=== PATIENT | male | born 1965 | race African-American/Black ===

== ENCOUNTER 2018-11-12 10:04 | Inpatient (IN) | payer MEDICARE, MEDICAID ==
[2018-11-12] MEDS ORDERED: Acetaminophen 325 MG TAB PO PRN (10:11)
[2018-11-12] MEDS ORDERED: Ondansetron ODT 4 MG TAB PO PRN (10:11)
--- NOTE | 2018-11-12 12:47 | PDOC.FPRHP ---
- History of Present Illness Chief Complaint: Ran out of blood pressure medicines and "feeling bad lately" History of Present Illness: The patient is a 53YO AAM w/ a PMH significant for HTN, a CVA and a brain aneurysm who was directly admitted from the family medicine clinic in [place], [place] after being found to be in hypertensive urgency with ECG changes. The patient reports that he ran out his BP medicines about 1 month ago and has been feeling bad ever since. He reports nightly headaches that are pounding in nature across the top of his head that are 6/10 in severity. He says they are exacerbated by laying down and somewhat relieved by sitting up. He also endorses relief with marijuana use. The patient denies any associated chest pain , SOB, vision changes, syncope or pre-syncope, N/V, or focal weakness or deficits other than residual right foot numbness from his previous CVA. He says the headaches are not anywhere near the pain he felt when he had his anuerysm. ED Course: N/A - Allergies/Adverse Reactions Allergies Allergy/AdvReac Type Severity Reaction Status Date / Time No Known Allergies Allergy Verified 11/12/18 14:11 - Home Medications Medication Instructions Recorded Confirmed Type No Known 11/12/18 11/12/18 History - History PMHx: HTN, CVA, h/o aneurysm s/p repair PSHx: h/o aneurysm repair 3-4 years ago FHx: Mother & father- HTN Father- from CVA Social: Current every day smoker. Down to 1/2 ppd but 37 pack year smoking history. Occasionally drinks a beer. Uses marijuana daily but reports no other drug use. - Vital signs BP: 200/119 HR: 56 RR: 20 Tmax: 98F Pox: 98% on RA Wt: 115.711 kg - Physical Exam Constitutional: NAD, awake, alert and oriented, well developed HEENT: normocephalic and atraumatic, PERRLA, EOMI, conjunctiva clear, grossly normal vision, grossly normal hearing, MMM, oropharynx clear Neck: supple, FROM Chest: no-tender to palpation Heart: RRR, normal S1/S2 Lungs: CTAB, no respiratory distress, good air movement, no rales/rhonchi, no wheezing Abdomen: soft, bowel sounds present Musculoskeletal: normal structure, ROM grossly normal Neurological: no focal deficit, CN II-XII intact, normal sensation, other ( proprioception intact) Skin: no rash/lesions, good turgor, capillary refill <2 seconds Heme/Lymphatic: no unusual bruising or bleeding, no purpura Psychiatric: normal mood and affect, good judgment and insight, intact recent and remote memory FMR H&P: Results - Labs Result Diagrams: 11/12/18 12:50 11/12/18 12:50 - EKG Interpretation EKG: Bradycardic at 50 with T wave inversion in aVL. FMR H&P: A/P - Problem List (1) Hypertensive urgency Current Visit: Yes Status: Acute Code(s): I16.0 - HYPERTENSIVE URGENCY (2) WOOD (acute kidney injury) Current Visit: Yes Status: Acute Code(s): N17.9 - ACUTE KIDNEY FAILURE, UNSPECIFIED (3) Elevated CK Current Visit: Yes Status: Acute (4) Elevated CK-MB level Current Visit: Yes Status: Acute Code(s): R74.8 - ABNORMAL LEVELS OF OTHER SERUM ENZYMES (5) Elevated troponin I level Current Visit: Yes Status: Acute Code(s): R74.8 - ABNORMAL LEVELS OF OTHER SERUM ENZYMES (6) Tobacco use Current Visit: Yes Status: Acute Code(s): Z72.0 - TOBACCO USE (7) History of CVA (cerebrovascular accident) Current Visit: Yes Status: Acute Code(s): Z86.73 - PRSNL HX OF TIA (TIA), AND CEREB INFRC W/O RESID DEFICITS (8) Brain aneurysm Current Visit: Yes Status: Resolved - Plan 53YO AAM w/ a PMH significant for HTN, a prior CVA, and brain aneurysm s/p repair who was directly admitted from clinic today after being found to be in hypertensive urgency with a SBP of 210. Hypertensive Urgency: - Will allow permissive hypertension overnight as we do not want to bottom patient out quickly but will start on IV hydralazine PRN for SBP > 180. - Will resume home PO losartan and will also restart home dose of HCTZ in the AM as long as WOOD has resolved. Will hold off resuming a BB as patient has been bradycardic in the 50s since admission. - No signs of end organ damage on exam or labs thus far other than slightly elevated Cr of 1.34. However, FeNa of 0.6% is suggestive of a pre-renal etiology. - Will order PO tylenol PRN for headache. Elevated troponin & CK-MB: - ECG in clinic and in the hospital signifcant for T wave inversions. Inversion noted in lead aVL in hospital. - Initial troponin indeterminately elevated at 0.049. Trended up to 0.059. Will continue to trend. - Initial CK-MB elevated at 7.9 and trending up to 8.5. Will continue to trend. Patient remains asymptomatic. Will order PRN SL nitro & get a repeat ECG should chest pain develop. Elevated CK: - CK elevated at 863 on presentation. - Will start on mIVFs with LR at 160mL/hr. WOOD: - Cr slightly elevated at 1.34 w/ eGFR of 68. - Will start on IVFs w/ LR @ 160mL/hr and recheck a BMP in the AM. h/o CVA: - Aware, patient no in ASA or statin currently. - Not on ASA or statin currently. Will request [facility] records and confirm with patient to see if CVA was ischemic or hemorrhagic. - Will order a FLP with AM labs to calculate ASCVD score but patient likely needs to be on a statin given HTN and smoking history alone. tobacco use: - Aware, current 1/2-1ppd smoker. - Will order a nicotine patch and encourage cessation. Marijuana use: - Patient admitted to daily marijuana use & UDS + on admission. - Will encourage cessation. h/o brain aneurysm: - Aware, s/p repair. FMR H&P: Upper Level - Pertinent history 53 yo male sent to hospital as a direct admit from [facility] for hypertensive urgency. Patient has history of HTN and 36pk year smoking history. Stopped taking losartan, HCTZ, metoprolol about 2 months with mild throbbing CRUZ for the past 2-3 weeks. Denies CP, SOB, N/V, edema. Also endorses daily marijuana use which improves CRUZ. History also significant for aneurysm 3-4 year ago and stroke about 2-3 years ago with right foot and hand pain. Walks with a cane. - Pertinent findings 188/112 HR: 57 98.0 98% on RA RR: 20 GEN: NAD, AAOx3 CARD: RRR, no mgr PULM: CTAB ABD: BSx4, distended, non tender EXT: no cyanosis or edema NEURO: strength 5/5 and symmetric in both LE; no numbness in RLE EKG: sinus maria eugenia, T wave inversions Cr: 1.34 Trop: 0.041 CKMB: 7.9 FeNa: 0.6%, pre-renal - Plan Date/Time: 11/12/18 1247 I, Jose G Montemayor DO, have evaluated this patient and agree with findings/plan as outlined by technology risk intern resident. Pertinent changes/additions are listed here. #HTN urgency -concern for end organ damage with indeterminate troponin and elevated CK as well as EKG changes, will continue to trend with EKGs -will give hydralazine prn -will also give HCTZ starting in the morning -hold off on lowering BP to low or too high as he has a history of aortic aneurysm and stroke #WOOD -LR at maintanence -recheck in the morning -FeNa 0.6% with #marijuana and tobacco abuse -UDS -nicotine patch -counselor at law on cessation
[2018-11-12 13:04] LABS: #Eosinphils 0.2 thou/uL (0.0-0.7); #Lymphocytes 1.8 thou/uL (1.20-3.40); #Monocytes 0.6 thou/uL (0.11-0.59); #Neutrophils 6.3 thou/uL (1.40-6.50); %Basophils 0.4 % (0.0-1.0); %Eosinophils 1.9 % (0.0-10.0); %Lymphocytes 20.2 % (21.0-51.0); %Neutrophils 70.5 % (42.0-75.0); Hemoglobin 15.2 g/dL (14.0-18.0); Mean Corpuscular HGB CONC 31.9 g/dL (32.0-36.0); Mean Corpuscular Hemoglobin 25.2 pg (27.0-31.0); Mean Corpuscular Volume 79.1 fL (78.0-98.0); Mean Platelet Volume 10.3 fL (7.4-10.4); Platelet Count 193 thou/uL (130-400); RBC Distribution Width 13.3 % (11.5-14.5); Red Blood Cell (RBC) Count 6.03 mill/uL (4.70-6.10); White Blood Cell (WBC) Count 8.9 thou/uL (4.8-10.8)
[2018-11-12 13:30] LABS: ALT (SGPT) 19 U/L (8-55); AST (SGOT) 25 U/L (5-34); Albumin 3.9 g/dL (3.5-5.0); Alkaline Phosphatase 81 U/L (40-150); Anion Gap 13 mmol/L (10-20); BUN (Urea Nitrogen) 17 mg/dL (8.4-25.7); Bilirubin, Total 1.1 mg/dL (0.2-1.2); Calc. Creatinine Clearance 0 mL/min (70-130); Calcium 9.5 mg/dL (7.8-10.44); Carbon Dioxide 29 mmol/L (22-29); Chloride 104 mmol/L (98-107); Estimated GFR-MDRD 68; Glucose 87 mg/dL (70-105); Potassium 3.5 mmol/L (3.5-5.1); Protein, Total 6.9 g/dL (6.0-8.3); Sodium 142 mmol/L (136-145)
[2018-11-12 13:56] LABS: CKMB 7.9 ng/mL (0-6.6)
[2018-11-12] MEDS: hydrALAZINE 20 MG/ML VIAL SLOW IVP PRN ×2 (15:00→20:05)
[2018-11-12] MEDS ORDERED: Nicotine 21 MG PATCH TD SCH (15:00)
[2018-11-12 16:54] LABS: Amphetamine Not Detected (NotDetected); Barbiturates Screen Not Detected (NotDetected); Benzodiazepine Screen Not Detected (NotDetected); Cocaine Metabolite Screen Not Detected (NotDetected); Medtox Control Line Valid? VALID (VALID); Medtox Reader # READER 4; Methadone Not Detected (NotDetected); Methamphetamine Not Detected (NotDetected); Opiate Screen Not Detected (NotDetected); Oxycodone Screen Not Detected (NotDetected); Phencyclidine (PCP) Not Detected (NotDetected); THC/Cannabinoid Screen Detected (NotDetected); Tricyclic Screen Not Detected (NotDetected)
[2018-11-12 16:59] LABS: CKMB 8.5 ng/mL (0-6.6)
[2018-11-12 17:01] LABS: Creatinine, Urine 160.88 mg/dL (63-166)
[2018-11-12] MEDS: Lactated Ringer's 1,000 ML IV SCH (17:22)
[2018-11-12] MEDS ORDERED: Nitroglycerin 0.4 MG TAB (25 Tab Bottle) SL PRN (17:45)
[2018-11-12] MEDS ORDERED: Amlodipine 5 MG TAB PO SCH (18:00)
[2018-11-12 20:07] LABS: CKMB 6.4 ng/mL (0-6.6)
[2018-11-12] MEDS ORDERED: Hydrochlorothiazide 25 MG TAB PO SCH (22:45)
[2018-11-13] MEDS: hydrALAZINE 20 MG/ML VIAL SLOW IVP PRN ×3 (00:32→12:04)
[2018-11-13] MEDS: Lactated Ringer's 1,000 ML IV SCH ×2 (00:39→07:39)
[2018-11-13 05:51] LABS: Anion Gap 11 mmol/L (10-20); BUN (Urea Nitrogen) 16 mg/dL (8.4-25.7); Calc. Creatinine Clearance 116 mL/min (70-130); Calcium 9.6 mg/dL (7.8-10.44); Carbon Dioxide 30 mmol/L (22-29); Cardiac Risk 3.4 (Less than 4.5); Chloride 103 mmol/L (98-107); Cholesterol 175 mg/dl (< 200 Desired); Estimated GFR-MDRD 75; Glucose 92 mg/dL (70-105); HDL Cholesterol 52 mg/dL (>60 Neg Risk); LDL Cholesterol, Calculated 107 mg/dL; Sodium 141 mmol/L (136-145); Triglycerides 78 mg/dL (Less than 150)
--- NOTE | 2018-11-13 06:14 | PDOC.FM ---
- Subjective Subjective: Patient required 3 doses of IV hydralazine since admission for SBPs > 180. Patient reports having a headache this AM but states it is a 2/10 in severity. Denies any chest pain or SOB. - Objective MAR Reviewed: Yes Vital Signs & Weight: Vital Signs (12 hours) Temp Pulse Resp BP BP Pulse Ox 11/13/18 05:50 177/89 H 11/13/18 04:00 98.6 F 70 19 205/114 H 97 11/13/18 01:20 75 159/89 H 11/13/18 00:32 72 11/13/18 00:00 97.8 F 72 19 215/120 H 96 11/12/18 20:05 71 212/119 H 11/12/18 20:00 97.9 F 67 19 223/127 H 96 Weight Weight 115.711 kg I&O: 11/11/18 11/12/18 11/13/18 06:59 06:59 06:59 Intake Total 1348 Output Total 650 Balance 698 Result Diagrams: 11/12/18 12:50 11/13/18 04:54 Phys Exam - Physical Examination Constitutional: NAD HEENT: moist MMs Neck: supple, full ROM Respiratory: no wheezing, no rales, no rhonchi, clear to auscultation bilateral Cardiovascular: RRR, no significant murmur Gastrointestinal: no distention, positive bowel sounds Musculoskeletal: no edema Neurological: non-focal, moves all 4 limbs Psychiatric: normal affect, A&O x 3 Skin: no rash, normal turgor Dx/Plan (1) Hypertensive urgency Code(s): I16.0 - HYPERTENSIVE URGENCY Status: Acute (2) WOOD (acute kidney injury) Code(s): N17.9 - ACUTE KIDNEY FAILURE, UNSPECIFIED Status: Acute (3) Elevated CK Status: Acute (4) Elevated CK-MB level Code(s): R74.8 - ABNORMAL LEVELS OF OTHER SERUM ENZYMES Status: Acute (5) Elevated troponin I level Code(s): R74.8 - ABNORMAL LEVELS OF OTHER SERUM ENZYMES Status: Acute (6) Tobacco use Code(s): Z72.0 - TOBACCO USE Status: Acute (7) History of CVA (cerebrovascular accident) Code(s): Z86.73 - PRSNL HX OF TIA (TIA), AND CEREB INFRC W/O RESID DEFICITS Status: Acute (8) Brain aneurysm Status: Resolved - Plan Plan: 53YO AAM w/ a PMH significant for HTN, a prior CVA, and brain aneurysm s/p repair who was directly admitted from clinic today after being found to be in hypertensive urgency with a SBP of 210. Hypertensive Urgency: - Will continue IV hydralazine PRN for SBP > 180. - Will resume home PO losartan and HCTZ today. Will also consider resuming a BB as the patient's HR has increased into the 70's overnight. - Will order PO tylenol PRN for headache. - Will consider initiating a workup for causes of secondary HTN such as hypoaldosteronism by measuring plasma renin activity and plasma aldosterone level due to severity of elevation of BP and the fact that the patient has had headaches even while on his antihypertensive therapy. Hypokalemia: - K of 3.0 this AM. - Will replace with 40mEq PO this AM. - Will continue to monitor with QD labs. Elevated troponin & CK-MB: - Resolved. - ECG in clinic and in the hospital signifcant for T wave inversions. Inversion noted in lead aVL in hospital. - Initial troponin indeterminately elevated at 0.049. Trended up to 0.059 but finally downtrended to 0.051 on third draw. - Initial CK-MB elevated at 7.9 and trending up to 8.5 but finally downtrended on 3rd draw as well. Patient remains asymptomatic. - Will order PRN SL nitro & get a repeat ECG should chest pain develop. Elevated CK: - CK elevated at 863 on presentation. Repeat down to 500 this AM. - Will consider deescalating IVFs today. WOOD: - Cr down to NLs at 1.23 this AM. - Will consider deescalating IVFs as patient is tolerating PO. h/o CVA: - Aware, patient not on ASA or statin currently. - Will request [facility] records and confirm with patient to see if CVA was ischemic or hemorrhagic. - 10-year ASCVD risk score of 25.5%. Will start statin therapy today and consider ASA as well. tobacco use: - Aware, current 1/2-1ppd smoker. - Will order a nicotine patch and encourage cessation. Marijuana use: - Patient admitted to daily marijuana use & UDS + on admission. - Will encourage cessation. h/o brain aneurysm: - Aware, s/p repair. Addendum - Attending - Attending Attestation Date/Time: 11/13/18 5518 I personally evaluated the patient and discussed the management with Dr. Medellin I agree with the History, Examination, Assessment and Plan documented above with any addition or exceptions noted below- Patient denies any complaints except persistent CRUZ. Ambulating without difficulty. Tolerating po. Afebrile. BP 170-190/105/115. A/P: 1) Hypertensive urgency - Retsrated on home medications this morning. Continue prn hydralazine and amlodipine added. Continue to monitor through today. 2) WOOD- improved. 3) Indeterminate troponins - most likely secondary to HTN.
[2018-11-13] MEDS ORDERED: Potassium Chloride 20 MEQ TAB PO SCH (06:30)
[2018-11-13] MEDS ORDERED: Losartan 25 MG TAB PO SCH ×2 (07:45→09:00)
[2018-11-13] MEDS ORDERED: Amlodipine 5 MG TAB PO SCH ×2 (08:00→13:00)
[2018-11-13] MEDS ORDERED: Metoprolol Tartrate 25 MG TAB PO SCH ×3 (09:00→17:00)
[2018-11-13] MEDS ORDERED: Hydrochlorothiazide 25 MG TAB PO SCH (09:00)
[2018-11-13] MEDS: Losartan 25 MG TAB PO SCH (09:14)
[2018-11-13] MEDS: Enoxaparin Sodium 40 MG/0.4 ML SYRINGE SC SCH (09:19)
[2018-11-13] MEDS ORDERED: Acetaminophen 325 MG TAB PO PRN (09:43)
[2018-11-13] MEDS: Ibuprofen 800 MG TAB PO PRN (14:31)
[2018-11-13] MEDS: Metoprolol Tartrate 50 MG TAB PO SCH (21:17)
[2018-11-13] MEDS: Atorvastatin Calcium 40 MG TAB PO SCH (21:18)
[2018-11-14] MEDS: hydrALAZINE 20 MG/ML VIAL SLOW IVP PRN ×2 (04:55→11:43)
--- NOTE | 2018-11-14 06:31 | EKG ---
Test Reason : Blood Pressure : / mmHG Vent. Rate : 060 BPM Atrial Rate : 060 BPM P-R Int : 214 ms QRS Dur : 100 ms QT Int : 454 ms P-R-T Axes : 052 -13 253 degrees QTc Int : 454 ms Sinus rhythm with 1st degree A-V block T wave abnormality, consider lateral ischemia ST-T wave changes inferiorly suggests ischemia. Abnormal ECG When compared with ECG of 10-AUG-2012 15:26, Criteria for Inferior infarct are no longer Present Confirmed by NANCIE DELAROSA ([id number]) on 11/14/2018 6:31:24 AM Referred By: KARIN Confirmed By:NANCIE DELAROSA
--- NOTE | 2018-11-14 06:31 | PDOC.FM ---
- Subjective Subjective: Patient still reaching hypertensive urgency range overnight even with the addition of Norvasc yesterday. Endorses a headache on exam this AM. Otherwise, no complaints. - Objective MAR Reviewed: Yes Vital Signs & Weight: Vital Signs (12 hours) Temp Pulse Resp BP BP Pulse Ox 11/14/18 04:55 65 186/121 H 11/14/18 03:00 98.0 F 63 16 186/121 H 98 11/13/18 23:57 98.1 F 65 16 187/120 H 95 11/13/18 19:00 98.0 F 69 16 190/122 H 95 Weight Weight 115.711 kg I&O: 11/12/18 11/13/18 11/14/18 06:59 06:59 06:59 Intake Total 1348 Output Total 1650 450 Balance -302 -450 Result Diagrams: 11/12/18 12:50 11/14/18 06:46 Phys Exam - Physical Examination Constitutional: NAD HEENT: moist MMs Neck: supple, full ROM Respiratory: no wheezing, no rales, no rhonchi, clear to auscultation bilateral Cardiovascular: RRR, no significant murmur Musculoskeletal: no edema Neurological: non-focal, moves all 4 limbs Psychiatric: normal affect, A&O x 3 Skin: no rash, normal turgor Dx/Plan (1) Hypertensive urgency Code(s): I16.0 - HYPERTENSIVE URGENCY Status: Acute (2) WOOD (acute kidney injury) Code(s): N17.9 - ACUTE KIDNEY FAILURE, UNSPECIFIED Status: Acute (3) Elevated CK Status: Acute (4) Elevated CK-MB level Code(s): R74.8 - ABNORMAL LEVELS OF OTHER SERUM ENZYMES Status: Acute (5) Elevated troponin I level Code(s): R74.8 - ABNORMAL LEVELS OF OTHER SERUM ENZYMES Status: Acute (6) Tobacco use Code(s): Z72.0 - TOBACCO USE Status: Acute (7) History of CVA (cerebrovascular accident) Code(s): Z86.73 - PRSNL HX OF TIA (TIA), AND CEREB INFRC W/O RESID DEFICITS Status: Acute (8) Brain aneurysm Status: Resolved - Plan Plan: 53YO AAM w/ a PMH significant for HTN, a prior CVA, and brain aneurysm s/p repair who was directly admitted from clinic today after being found to be in hypertensive urgency with a SBP of 210. Hypertensive Urgency: - Will continue IV hydralazine PRN for SBP > 180. - Will continue home PO losartan, HCTZ, & metoprolol today but will consider increasing the norvasc to 10mg QD. - Will continue PO tylenol PRN for headache w/ ibuprofen PRN if tylenol does not help. - Will consider initiating a workup for causes of secondary HTN such as hyperaldosteronism by measuring plasma renin activity and plasma aldosterone level due to severity of elevation of BP and the fact that the patient has had headaches even while on his antihypertensive therapy. - Will also consider obtaining a renal doppler U/S to r/o renal artery stenosis as a possible etiology for patient's malignant BP. Hypokalemia: - K low at 3 yesterday AM. - Repeat BMP pending this AM. - Will continue to monitor with QD labs. Elevated CK: - CK elevated at 863 on presentation. Repeat down to 500. - Will continue with PO hydration. WOOD: - Cr down to NLs at 1.23 yesterday. Repeat pending this AM. - Will consider deescalating IVFs as patient is tolerating PO. h/o CVA: - Aware, will continue statin therapy as patient's 10-year ASCVD risk score is > 25%. tobacco use: - Aware, current 1/2-1ppd smoker. - Will encourage cessation. Marijuana use: - Patient admitted to daily marijuana use & UDS + on admission. - Will encourage cessation. h/o brain aneurysm: - Aware, s/p repair. Will treat HTN as described above. Elevated troponin & CK-MB: - Resolved. - ECG in clinic and in the hospital signifcant for T wave inversions. Inversion noted in lead aVL in hospital. - Initial troponin indeterminately elevated at 0.049. Trended up to 0.059 but finally downtrended to 0.051 on third draw. - Initial CK-MB elevated at 7.9 and trending up to 8.5 but finally downtrended on 3rd draw as well. Patient remains asymptomatic. - Will order PRN SL nitro & get a repeat ECG should chest pain develop. Addendum - Attending - Attending Attestation Date/Time: 11/14/18 1018 I personally evaluated the patient and discussed the management with Dr. Medellin I agree with the History, Examination, Assessment and Plan documented above with any addition or exceptions noted below- Patient still with CRUZ otherwise no complaints. Afebrile BP 160-190/110-120s. A/P: 1) Hypertensive urgency - Medications adjusted. Will check renal ultrasound. Consider nephrology consult if still markedly elevated. 2) WOOD- resolved.
[2018-11-14 07:44] LABS: Anion Gap 9 mmol/L (10-20); BUN (Urea Nitrogen) 16 mg/dL (8.4-25.7); Calc. Creatinine Clearance 113 mL/min (70-130); Calcium 9.8 mg/dL (7.8-10.44); Carbon Dioxide 29 mmol/L (22-29); Chloride 104 mmol/L (98-107); Estimated GFR-MDRD 72; Glucose 123 mg/dL (70-105); Potassium 3.2 mmol/L (3.5-5.1); Sodium 139 mmol/L (136-145)
[2018-11-14] MEDS ORDERED: Labetalol HCl 100 MG/20 ML VIAL SLOW IVP PRN (07:45)
[2018-11-14] MEDS: Losartan 25 MG TAB PO SCH (08:05)
[2018-11-14] MEDS: Hydrochlorothiazide 25 MG TAB PO SCH ×2 (08:05→20:19)
[2018-11-14] MEDS: Amlodipine 10 MG TAB PO SCH (08:05)
[2018-11-14] MEDS: Metoprolol Tartrate 50 MG TAB PO SCH ×2 (08:06→20:19)
[2018-11-14] MEDS: Enoxaparin Sodium 40 MG/0.4 ML SYRINGE SC SCH (08:06)
[2018-11-14] MEDS: Potassium Chloride 20 MEQ TAB PO SCH (08:09)
[2018-11-14] MEDS ORDERED: Amlodipine 5 MG TAB PO SCH ×2 (09:00)
[2018-11-14] MEDS ORDERED: Losartan 25 MG TAB PO SCH (09:00)
[2018-11-14] MEDS: Ibuprofen 800 MG TAB PO PRN (11:53)
--- NOTE | 2018-11-14 12:46 | PDOC.EVN ---
Event Note - Event Note Event Note: Patient was changed to inpatient status on 11/14/18 @ ~12:45 after the patient was determined to have failed observation treatment for his HTN. Will continue inpatient workup for causes of secondary HTN and continue to increase his BP regimen PRN.
[2018-11-14] MEDS ORDERED: Metoclopramide HCl 10 MG/2 ML VIAL IVP SCH (16:00)
[2018-11-14] MEDS ORDERED: diphenhydrAMINE 50 MG/ML VIAL IVP SCH (16:00)
--- NOTE | 2018-11-14 17:56 | ULT ---
BILATERAL RENAL ULTRASOUND: HISTORY: Renal failure. FINDINGS: The right kidney measures 11.8 cm in length, and the left kidney measures 10.8 cm in length. No hydr onephrosis or focal mass is seen on either side. No shadowing calculi are noted. The urinary bladde r is not distended due to recent voiding, with a small amount of residual urine. IMPRESSION: No evidence of high-grade obstruction. POS: [facility]
[2018-11-14] MEDS: Atorvastatin Calcium 40 MG TAB PO SCH (20:19)
[2018-11-15] MEDS: Ibuprofen 800 MG TAB PO PRN ×2 (05:02→18:44)
--- NOTE | 2018-11-15 05:23 | PDOC.FM ---
- Subjective Subjective: Patient's BP increased to 188 around 0400 this AM. Otherwise was much better controlled yesterday. Patient states he feels well this AM. Says that his headache is no longer present. Wants to go home today. - Objective MAR Reviewed: Yes Vital Signs & Weight: Vital Signs (12 hours) Temp Pulse Resp BP BP BP Pulse Ox 11/15/18 05:07 179/105 H 11/15/18 03:57 98.4 F 73 16 188/112 H 98 11/15/18 00:00 98.2 F 66 16 158/86 H 98 11/14/18 20:03 98.0 F 72 16 155/96 H 96 Weight Weight 109.951 kg I&O: 11/13/18 11/14/18 11/15/18 06:59 06:59 06:59 Intake Total 1348 50 Output Total 1650 450 Balance -302 -450 50 Result Diagrams: 11/12/18 12:50 11/15/18 04:56 Phys Exam - Physical Examination Constitutional: NAD HEENT: moist MMs Neck: supple, full ROM Respiratory: no wheezing, no rales, no rhonchi, clear to auscultation bilateral Cardiovascular: RRR, no significant murmur Gastrointestinal: positive bowel sounds Musculoskeletal: no edema Neurological: non-focal, moves all 4 limbs Psychiatric: normal affect, A&O x 3 Skin: no rash, normal turgor, cap refill <2 seconds Dx/Plan (1) Hypertensive urgency Code(s): I16.0 - HYPERTENSIVE URGENCY Status: Acute (2) WOOD (acute kidney injury) Code(s): N17.9 - ACUTE KIDNEY FAILURE, UNSPECIFIED Status: Acute (3) Elevated CK Status: Acute (4) Elevated CK-MB level Code(s): R74.8 - ABNORMAL LEVELS OF OTHER SERUM ENZYMES Status: Acute (5) Elevated troponin I level Code(s): R74.8 - ABNORMAL LEVELS OF OTHER SERUM ENZYMES Status: Acute (6) Tobacco use Code(s): Z72.0 - TOBACCO USE Status: Acute (7) History of CVA (cerebrovascular accident) Code(s): Z86.73 - PRSNL HX OF TIA (TIA), AND CEREB INFRC W/O RESID DEFICITS Status: Acute (8) Brain aneurysm Status: Resolved - Plan Plan: 53YO AAM w/ a PMH significant for HTN, a prior CVA, and brain aneurysm s/p repair who was directly admitted from clinic today after being found to be in hypertensive urgency with a SBP of 210. Hypertensive Urgency: - Will continue IV hydralazine & labetalol PRN for SBP > 180. - Will continue home PO losartan, HCTZ BID, metoprolol, & norvasc 10 today as BPs were much better controlled yesterday. - Will continue PO tylenol PRN for headache w/ ibuprofen PRN if tylenol does not help. - Will consider initiating a workup for causes of secondary HTN such as hyperaldosteronism by measuring plasma renin activity and plasma aldosterone level due to severity of elevation of BP and the fact that the patient has had headaches even while on his antihypertensive therapy. - Will renal U/S did not show any evidence of hydro but did not comment on arteries. Will need one with dopplers to evaluate renal arteries. Hypokalemia: - K low at 3.3 today. - Will replace with 40mEq PO today. - Will continue to monitor with QD labs. Elevated CK: - CK elevated at 863 on presentation. Repeat down to 500. - Will continue with PO hydration. WOOD: - Cr slightly up at 1.39 this AM. Will consider administering a small bolus of fluids as likely prerenal in etiology as it was on admission. Likely related to BP actually being better controlled yesterday. - Will continue to monitor with QD labs. h/o CVA: - Aware, will continue statin therapy as patient's 10-year ASCVD risk score is > 25%. tobacco use: - Aware, current 1/2-1ppd smoker. - Will encourage cessation. Marijuana use: - Patient admitted to daily marijuana use & UDS + on admission. - Will encourage cessation. h/o brain aneurysm: - Aware, s/p repair. Will treat HTN as described above. Elevated troponin & CK-MB: - Resolved. - ECG in clinic and in the hospital signifcant for T wave inversions. Inversion noted in lead aVL in hospital. - Initial troponin indeterminately elevated at 0.049. Trended up to 0.059 but finally downtrended to 0.051 on third draw. - Initial CK-MB elevated at 7.9 and trending up to 8.5 but finally downtrended on 3rd draw as well. Patient remains asymptomatic. - Will continue PRN SL nitro & get a repeat ECG should chest pain develop. Addendum - Attending - Attending Attestation Date/Time: 11/15/18 1037 I personally evaluated the patient and discussed the management with Dr. Medellin I agree with the History, Examination, Assessment and Plan documented above with any addition or exceptions noted below- Patient without complaints. Afebrile BP 140-190/75-120. A/P: 1) Hypertensive urgency- BP marginally improved ; continue current medications; Awaiting renal artery USG. Will check U/A for proteinuria. May need to add minoxidil. 2) H/o CVA- continue statin
[2018-11-15 05:27] LABS: Anion Gap 12 mmol/L (10-20); BUN (Urea Nitrogen) 18 mg/dL (8.4-25.7); Calc. Creatinine Clearance 98 mL/min (70-130); Calcium 9.9 mg/dL (7.8-10.44); Carbon Dioxide 28 mmol/L (22-29); Chloride 104 mmol/L (98-107); Estimated GFR-MDRD 65; Glucose 105 mg/dL (70-105); Magnesium 2.3 mg/dL (1.6-2.6); Potassium 3.3 mmol/L (3.5-5.1); Sodium 141 mmol/L (136-145)
[2018-11-15] MEDS: Losartan 25 MG TAB PO SCH (08:19)
[2018-11-15] MEDS: Enoxaparin Sodium 40 MG/0.4 ML SYRINGE SC SCH ×2 (08:20→08:24)
[2018-11-15] MEDS: Amlodipine 10 MG TAB PO SCH (08:20)
[2018-11-15] MEDS: Potassium Chloride 20 MEQ TAB PO SCH (08:20)
[2018-11-15] MEDS: Hydrochlorothiazide 25 MG TAB PO SCH ×2 (08:20→21:20)
[2018-11-15] MEDS: Metoprolol Tartrate 50 MG TAB PO SCH ×2 (08:20→21:20)
--- NOTE | 2018-11-15 12:10 | ULT ---
BILATERAL RENAL ARTERIAL DOPPLER ULTRASOUND: Date: 11/15/18 HISTORY: Hypertension. FINDINGS: The peak systolic velocity in the right renal artery measures 105 cm/second and in the left renal art rudi measures 67 cm/second. The renal artery to aortic ratio is measured at 1.72 on the right and 1.08 on the left. The resistive indices measure 0.56 on the right and 0.66 on the left. IMPRESSION: No evidence of hemodynamically significant renal artery stenosis. POS: [place]
[2018-11-15 14:11] LABS: Bilirubin Negative (Negative); Blood, Urine Negative (Negative); Clarity CLEAR (Clear); Glucose, Urine (Dipstick) Negative (Negative); Leukocyte Small (Negative); Nitrite Negative (Negative); Protein, Urine (Dipstick) Negative (Neg-Trace); Specific Gravity, Urine 1.016 (1.002-1.036)
[2018-11-15 14:14] LABS: Bacteria/HPF None Seen HPF (None Seen); Hyaline Casts/LPF 0-3 HYALINE CAST LPF (0-3 Hyaline); Pathc Cast-AUWi Flag 0.29 (0-2.49); Squamous Epithelial 0-3 HPF (0-3)
[2018-11-15] MEDS: hydrALAZINE 20 MG/ML VIAL SLOW IVP PRN (15:40)
[2018-11-15] MEDS: Atorvastatin Calcium 40 MG TAB PO SCH (21:20)
--- NOTE | 2018-11-16 06:07 | PDOC.FM ---
- Subjective Subjective: NAEO. Patient says he feels well this AM. Denies any persistent headache. Denies having had any chest pain or SOB since admission. Would like to go home. - Objective MAR Reviewed: Yes Vital Signs & Weight: Vital Signs (12 hours) Temp Pulse Resp BP Pulse Ox 11/16/18 03:40 98.5 F 68 16 172/95 H 96 11/16/18 00:00 98.7 F 65 16 135/91 H 98 11/15/18 20:40 97 11/15/18 19:56 98.6 F 87 18 131/76 97 Weight Weight 110.767 kg I&O: 11/14/18 11/15/18 11/16/18 06:59 06:59 06:59 Intake Total 460 920 Output Total 450 Balance -450 460 920 Result Diagrams: 11/12/18 12:50 11/16/18 06:05 Phys Exam - Physical Examination Constitutional: NAD HEENT: moist MMs Neck: supple, full ROM Respiratory: no wheezing, no rales, no rhonchi, clear to auscultation bilateral Cardiovascular: RRR, no significant murmur Gastrointestinal: positive bowel sounds Musculoskeletal: no edema, pulses present Neurological: non-focal, moves all 4 limbs Psychiatric: normal affect, A&O x 3 Skin: no rash, normal turgor, cap refill <2 seconds Dx/Plan (1) Hypertensive urgency Code(s): I16.0 - HYPERTENSIVE URGENCY Status: Acute (2) WOOD (acute kidney injury) Code(s): N17.9 - ACUTE KIDNEY FAILURE, UNSPECIFIED Status: Acute (3) Elevated CK Status: Acute (4) Elevated CK-MB level Code(s): R74.8 - ABNORMAL LEVELS OF OTHER SERUM ENZYMES Status: Acute (5) Elevated troponin I level Code(s): R74.8 - ABNORMAL LEVELS OF OTHER SERUM ENZYMES Status: Acute (6) Tobacco use Code(s): Z72.0 - TOBACCO USE Status: Acute (7) History of CVA (cerebrovascular accident) Code(s): Z86.73 - PRSNL HX OF TIA (TIA), AND CEREB INFRC W/O RESID DEFICITS Status: Acute (8) Brain aneurysm Status: Resolved - Plan Plan: 53YO AAM w/ a PMH significant for HTN, a prior CVA, and brain aneurysm s/p repair who was directly admitted from clinic today after being found to be in hypertensive urgency with a SBP of 210. Hypertensive Urgency: - Improving, no SBP > 180 since ~12:00 yesterday. - Will continue home PO losartan, HCTZ BID, metoprolol BID but now give norvasc 10 QPM instead of QAM to prevent BP spikes in the early AM. - Will continue PO tylenol PRN for headache w/ ibuprofen PRN if tylenol does not help. - Will still consider initiating a workup for causes of secondary HTN as an outpatient as it has taken several days and now 4 agents to get BP just below urgency range consistently. - Will renal U/S did not show any significant renal artery stenosis and UA was negative for proteinuria. - Will watch closely over the course of the afternoon and possibly d/c later today if BP is still below urgency level but will need to make sure patient has prescriptions first. Hypokalemia: - K low at 3.3 yesterday. - Repeat pending today. Will replace PRN. - Will continue to monitor with QD labs. WOOD: - Cr slightly up at 1.39 yesterday. Likely related to BP actually being better controlled. - Will continue to monitor with QD labs. h/o CVA: - Aware, will continue statin therapy as patient's 10-year ASCVD risk score is > 25%. tobacco use: - Aware, current 1/2-1ppd smoker. - Will encourage cessation. Marijuana use: - Patient admitted to daily marijuana use & UDS + on admission. - Will encourage cessation. h/o brain aneurysm: - Aware, s/p repair. Will treat HTN as described above. Elevated CK: - CK elevated at 863 on presentation. Repeat down to 500. - Will continue with PO hydration. Elevated troponin & CK-MB: - Resolved. - ECG in clinic and in the hospital significant for T wave inversions. Inversion noted in lead aVL in hospital. - Initial troponin indeterminately elevated at 0.049. Trended up to 0.059 but finally downtrended to 0.051 on third draw. - Initial CK-MB elevated at 7.9 and trending up to 8.5 but finally downtrended on 3rd draw as well. Patient remains asymptomatic. - Will continue PRN SL nitro & get a repeat ECG should chest pain develop. Dispo: Will watch through noon today and if patient's BP remains below urgency level will likely d/c home with instructions for close follow-up at our clinic. Addendum - Attending - Attending Attestation Date/Time: 11/16/18 1320 I personally evaluated the patient and discussed the management with Dr. Medellin I agree with the History, Examination, Assessment and Plan documented above with any addition or exceptions noted below- Patient without complaint. States that he feels better. Afebrile BP 130-170/90s. A/P: 1) HTN urgency- improved; continue current meds. Renal USG and dopplers negative. Will also check plasma renin and aldosterone in AM 2) V-tach- had 9 beats of V-tach overnight; asymptomatic. Will consult cardiology. Will obtain echo.
[2018-11-16 07:16] LABS: Anion Gap 13 mmol/L (10-20); BUN (Urea Nitrogen) 20 mg/dL (8.4-25.7); Calc. Creatinine Clearance 99 mL/min (70-130); Calcium 9.9 mg/dL (7.8-10.44); Carbon Dioxide 25 mmol/L (22-29); Chloride 103 mmol/L (98-107); Estimated GFR-MDRD 66; Glucose 97 mg/dL (70-105); Potassium 3.2 mmol/L (3.5-5.1); Sodium 138 mmol/L (136-145)
[2018-11-16] MEDS: Enoxaparin Sodium 40 MG/0.4 ML SYRINGE SC SCH (08:16)
[2018-11-16] MEDS: Losartan 25 MG TAB PO SCH (08:16)
[2018-11-16] MEDS: Metoprolol Tartrate 50 MG TAB PO SCH ×2 (08:16→20:58)
[2018-11-16] MEDS: Hydrochlorothiazide 25 MG TAB PO SCH ×2 (08:16→20:58)
[2018-11-16] MEDS: Potassium Chloride 20 MEQ TAB PO SCH (08:16)
[2018-11-16] MEDS: Atorvastatin Calcium 40 MG TAB PO SCH (20:58)
[2018-11-16] MEDS ORDERED: Amlodipine 10 MG TAB PO SCH (21:00)
[2018-11-16] MEDS ORDERED: NIFEdipine XL 60 MG TAB PO SCH (21:00)
[2018-11-17 06:08] LABS: Anion Gap 12 mmol/L (10-20); BUN (Urea Nitrogen) 24 mg/dL (8.4-25.7); Calc. Creatinine Clearance 94 mL/min (70-130); Carbon Dioxide 25 mmol/L (22-29); Chloride 105 mmol/L (98-107); Estimated GFR-MDRD 62; Glucose 109 mg/dL (70-105); Potassium 3.3 mmol/L (3.5-5.1); Sodium 139 mmol/L (136-145)
--- NOTE | 2018-11-17 06:50 | PDOC.FM ---
- Subjective Subjective: NAEO. Patient states he feels well this AM. Denies any chest pain, SOB, or palpitations. Wants to go home. - Objective MAR Reviewed: Yes Vital Signs & Weight: Vital Signs (12 hours) Temp Pulse Resp BP BP BP Pulse Ox 11/17/18 04:00 98.6 F 64 19 145/95 H 96 11/17/18 00:00 98.4 F 62 19 153/101 H 95 11/16/18 20:58 70 166/11 H 166/111 H 11/16/18 20:15 97 11/16/18 20:00 98.4 F 70 19 166/111 H 97 Weight Weight 110.767 kg I&O: 11/15/18 11/16/18 11/17/18 06:59 06:59 06:59 Intake Total 460 920 550 Balance 460 920 550 Result Diagrams: 11/12/18 12:50 11/17/18 05:35 Phys Exam - Physical Examination Constitutional: NAD HEENT: moist MMs Neck: supple, full ROM Respiratory: no wheezing, no rales, no rhonchi, clear to auscultation bilateral Cardiovascular: RRR, no significant murmur Gastrointestinal: positive bowel sounds Musculoskeletal: no edema, pulses present Neurological: non-focal, moves all 4 limbs Psychiatric: normal affect, A&O x 3 Skin: no rash, normal turgor Dx/Plan (1) Hypertensive urgency Code(s): I16.0 - HYPERTENSIVE URGENCY Status: Acute (2) WOOD (acute kidney injury) Code(s): N17.9 - ACUTE KIDNEY FAILURE, UNSPECIFIED Status: Acute (3) Elevated CK Status: Acute (4) Elevated CK-MB level Code(s): R74.8 - ABNORMAL LEVELS OF OTHER SERUM ENZYMES Status: Acute (5) Elevated troponin I level Code(s): R74.8 - ABNORMAL LEVELS OF OTHER SERUM ENZYMES Status: Acute (6) Tobacco use Code(s): Z72.0 - TOBACCO USE Status: Acute (7) History of CVA (cerebrovascular accident) Code(s): Z86.73 - PRSNL HX OF TIA (TIA), AND CEREB INFRC W/O RESID DEFICITS Status: Acute (8) Brain aneurysm Status: Resolved - Plan Plan: 53YO AAM w/ a PMH significant for HTN, a prior CVA, and brain aneurysm s/p repair who was directly admitted from clinic today after being found to be in hypertensive urgency with a SBP of 210. Hypertensive Urgency: - Improving, no SBP > 180 since ~15:00 on 11/15. - Will continue home PO losartan, HCTZ BID, & norvasc 10mg QHS. Will start on nifedipine rather than continuing metoprolol for now per cards recs. - Will continue PO tylenol PRN for headache w/ ibuprofen PRN if tylenol does not help. - Will renal U/S did not show any significant renal artery stenosis and UA was negative for proteinuria. - Urine and plasma free metanephrines as well as plasma renin activity and aldosterone levels pending to r/o other secondary causes of HTN. - Will watch closely over the course of the afternoon and plan to d/c once cards has signed off. Non-sustained V-tach: - Patient had a run of non-sustained V-tach on 11/06 @ ~0230. - Echo pending. - Cardiology, Dr. Fletcher, consulted and is on the case. Plan for stress test this AM. Will await further recs. Hypokalemia: - K 3.3 today. - Will continue with QD 40mEq PO and consider an additional one time dose of 20mEq QHS if patient stays overnight. - Will continue to monitor with QD labs. WOOD: - Cr slightly up at 1.46 today. Likely related to BP actually being better controlled. Will consider giving a 1/2 bolus while patient is NPO. - Will continue to monitor with QD labs. h/o CVA: - Aware, will continue statin therapy as patient's 10-year ASCVD risk score is > 25%. tobacco use: - Aware, current 1/2-1ppd smoker. - Will encourage cessation. Marijuana use: - Patient admitted to daily marijuana use & UDS + on admission. - Will encourage cessation. h/o brain aneurysm: - Aware, s/p repair. Will treat HTN as described above. Elevated CK: - CK elevated at 863 on presentation. Repeat down to 500. - Will continue with PO hydration. Elevated troponin & CK-MB: - Resolved. - ECG in clinic and in the hospital significant for T wave inversions. Inversion noted in lead aVL in hospital. - Initial troponin indeterminately elevated at 0.049. Trended up to 0.059 but finally downtrended to 0.051 on third draw. - Initial CK-MB elevated at 7.9 and trending up to 8.5 but finally downtrended on 3rd draw as well. Patient remains asymptomatic. - Will continue PRN SL nitro & get a repeat ECG should chest pain develop. Dispo: Will plan to d/c home possibly later today with close follow-up later today pending cards recs and a normal stress test today. Addendum - Attending - Attending Attestation Date/Time: 11/17/18 0992 I personally evaluated the patient and discussed the management with Dr. Medellin I agree with the History, Examination, Assessment and Plan documented above with any addition or exceptions noted below- Patient without complaints. Afebrile VSS. A/P: 1) Hypertension - BP improved; appreciate cardiology assistance. Continue current meds. 2) V-tach- no further episodes. Stress test today as per cardiology.
[2018-11-17] MEDS ORDERED: Lactated Ringer's 1,000 ML IV SCH ×2 (07:30)
[2018-11-17] MEDS: Losartan 25 MG TAB PO SCH (09:50)
[2018-11-17] MEDS: Potassium Chloride 20 MEQ TAB PO SCH (09:51)
[2018-11-17] MEDS: Hydrochlorothiazide 25 MG TAB PO SCH (09:51)
[2018-11-17] MEDS: Enoxaparin Sodium 40 MG/0.4 ML SYRINGE SC SCH (10:03)
--- NOTE | 2018-11-17 11:13 | NM ---
NUCLEAR MEDICINE CARDIAC SPECT WITH EF AND WALL MOTION: HISTORY: A 53-year-old male with a history of 9 beats of ventricular tachycardia, a history of stroke, hyperte nsion, and a smoking history. TECHNIQUE: Exam performed using Antwon protocol. Stress images were performed following 33 millicuries technetium 99m sestamibi intravenously. Restin g images were performed following 11 millicuries technetium 99m sestamibi intravenously. FINDINGS: Multiple SPECT images in the short axis, vertical long axis, and horizontal long axis demonstrate no scan evidence for infarct or ischemia. TID: 0.94 LHR: 0.40 EDV: Elevated at 207 mL. EF: 40% MYOCARDIAL PERFUSION WALL MOTION: No focal wall motion abnormality. IMPRESSION: 1. No scan evidence for infarct or ischemia. 2. Elevated end-diastolic velocity at 207 mL with a 40% ejection fraction. POS: [place]
[2018-11-17 11:55] VITALS: BP 161/107; TEMP 98.3
--- NOTE | 2018-11-17 21:28 | CON ---
DATE OF CONSULT: 11/16/18 Patient is a 53-year-old gentleman with a history of hypertension who presented with a markedly elevated blood pressure. The patient has a history of cerebrovascular accident. He has been found to have a brain aneurysm. He underwent resection of the aneurysm. The patient has a history of difficult to control hypertension. The patient states he is usually compliant with his medications. He had been out of his blood pressure medications and he noticed feeling weak. He denied having any chest discomfort. The patient denies having any history of dyspnea, PND or orthopnea. PAST MEDICAL HISTORY: 1. Hypertension. 2. Brain aneurysm. 3. Chronic renal insufficiency. PAST SURGICAL HISTORY: Brain aneurysm resection SOCIAL HISTORY: He smokes one pack per day and uses marijuana. FAMILY HISTORY: No strong family history of heart disease. ALLERGIES: No known drug allergies. MEDICATIONS: Potassium 20 q. day, Metoprolol 50 b.i.d., Losartan 100 daily, HCTZ 25 b.i.d. Lipitor 40 q. h.s., Norvasc 10 q. day. REVIEW OF SYSTEMS: Ten point system otherwise unremarkable. PHYSICAL EXAMINATION: GENERAL: This is an obese gentleman in no acute distress with a blood pressure of 165/97. NECK: Showed no jugular venous distention. LUNGS: Clear to auscultation. HEART: Regular rate and rhythm. Normal S1 and S2. ABDOMEN: Distended. EXTREMITIES: Show trace edema. VASCULAR: Radial pulses are 2+. LABORATORY RESULTS: Sodium 138, potassium 3.2, chloride 103, bicarbonate 25, BUN 20, creatinine 1.38 , glucose 97. EKG revealed normal sinus rhythm with T-wave abnormality suggestive of lateral ischemia. Telemetry monitoring revealed short run of nonsustained ventricular tachycardia. IMPRESSION: 1. Hypertensive crisis. 2. Nonsustained ventricular tachycardia. 3. History of CVA. 4. History of brain aneurysm. 5. Tobacco abuse 6. Renal insufficiency. This gentleman presents with malignant hypertension. He had a short run of nonsustained ventricular tachycardia. The patient will undergo an echocardiogram to evaluate his left ventricular function. Would also a recommend stress study to make sure there is no evidence of significant ischemia. The patient is highly advised to discontinue smoking. Would recommend switching the patient from Amlodipine to Nifedipine for better blood pressure control. We will follow this patient with you through his hospitalization. GUTHRIE CORTLAND MEDICAL CENTERAnnmarie
--- NOTE | 2018-11-18 12:03 | DIS ---
DATE OF ADMISSION: 11/14/2018 DATE OF DISCHARGE: 11/17/2018 RESIDENT: Jillian Medellin MD ADMITTING ATTENDING: Vidal Stock MD DISCHARGE ATTENDING: Beverly Schwartz MD CONSULT: Cardiology, Dr. Jl Fletcher. PROCEDURES: 1. Renal ultrasound on 11/14/2018, showed no evidence of high-grade obstruction. 2. Abdomen and pelvis ultrasound on 11/15/2018, which showed no evidence of hemodynamically significant renal artery stenosis. 3. Nuclear stress test, which showed no evidence of infarct or ischemia, but an elevated end-diastolic velocity of 207 mL with a 40% ejection fraction. 4. Echocardiogram, which showed an ejection fraction estimated at 50% to 55% with severe concentric left ventricular hypertrophy and impaired relaxation compatible with diastolic dysfunction. PRIMARY DIAGNOSES: 1. Hypertensive urgency. 2. Elevated troponin level. 3. Elevated CK-MB level. 4. Elevated CK. 5. Acute kidney injury. 6. Heart failure with preserved ejection fraction. SECONDARY DIAGNOSES: 1. Hypertension. 2. History of hemorrhagic cerebrovascular accident. 3. History of ruptured brain aneurysm. 4. Tobacco use. DISCHARGE MEDICATIONS: DICTATION ENDS HERE Job ID: [id number]
== END 2018-11-17 15:53 | disposition home or self-care (01) | DRG 305 ==
LOC: 2SE 12:18 → INTOOBSV 12:18 → OBSVTOIN 11-14 12:44
PROVIDERS: ADMIT Family Medicine; ATTEND Family Medicine
DX: I16.0 Hypertensive urgency (principal); N17.9 Acute kidney failure, unspecified; I47.2 Ventricular tachycardia; F17.210 Nicotine dependence, cigarettes, uncomplicated; I12.9 Hypertensive chronic kidney disease with stage 1 through stage 4 chronic kidney disease, or unspecified chronic kidney disease; F12.10 Cannabis abuse, uncomplicated; R74.8 Abnormal levels of other serum enzymes; N18.9 Chronic kidney disease, unspecified; E87.6 Hypokalemia; Z98.890 Other specified postprocedural states; Z86.79 Personal history of other diseases of the circulatory system; Z71.6 Tobacco abuse counseling; Z79.899 Other long term (current) drug therapy; Z86.73 Personal history of transient ischemic attack (TIA), and cerebral infarction without residual deficits
CPT/HCPCS: 36415; 76700; 76770; 78452; 80048; 80053; 80061; 80306; 81003; 81015; 82088; 82550; 82553; 82570; 83735; 83835; 84244; 84300; 84484; 85025; 93005; 93010; 93017; 93306; A9500; J0360; J1200; J1650; J2765

== ENCOUNTER 2019-03-14 02:06 | Inpatient (IN) | payer MEDICARE, MEDICAID ==
[2019-03-14] MEDS ORDERED: Labetalol HCl 100 MG/20 ML VIAL ONE (02:29)
[2019-03-14 03:12] LABS: Amphetamine Not Detected (NotDetected); Barbiturates Screen Not Detected (NotDetected); Benzodiazepine Screen Not Detected (NotDetected); Cocaine Metabolite Screen Not Detected (NotDetected); Medtox Control Line Valid? VALID (VALID); Medtox Reader # READER 4; Methadone Not Detected (NotDetected); Methamphetamine Not Detected (NotDetected); Opiate Screen Not Detected (NotDetected); Oxycodone Screen Not Detected (NotDetected); Phencyclidine (PCP) Not Detected (NotDetected); THC/Cannabinoid Screen Detected (NotDetected); Tricyclic Screen Not Detected (NotDetected)
[2019-03-14 03:49] LABS: CKMB 3.9 ng/mL (0-6.6)
--- NOTE | 2019-03-14 04:28 | PDOC.FPRHP ---
- History of Present Illness Chief Complaint: headache History of Present Illness: 53yo m with pmh of HTN and non compliance as well as ruptured brain anneurysm 3 years ago s/p craniectomy presents for CRUZ and nosebleed x1 day. pt reports these were the symptoms during his previous CVA and had CT brain done at outside ER which was unremarkable. Pt was otherwise a poor historian and unable to give any history. After transfer to [employer] he was asymptomatic only complaining of fatigue due to the late hour. ED Course: labetalol 20mg, --> cardene drip - Allergies/Adverse Reactions Allergies Allergy/AdvReac Type Severity Reaction Status Date / Time No Known Allergies Allergy Verified 03/14/19 05:01 - Home Medications Medication Instructions Recorded Confirmed Type Atorvastatin Calcium [Lipitor] 40 mg PO HS #30 tab 11/15/18 03/14/19 Rx Ibuprofen [Motrin] 800 mg PO Q6H PRN tab 11/15/18 03/14/19 Rx Losartan [Cozaar] 100 mg PO DAILY #120 tab 11/15/18 03/14/19 Rx Metoprolol Tartrate [Lopressor] 50 mg PO BID #60 tab 11/15/18 03/14/19 Rx Potassium Chloride [K-Dur] 20 meq PO DAILY #14 tab 11/15/18 03/14/19 Rx Hydrochlorothiazide 12.5 mg PO BID #60 tab 11/17/18 03/14/19 Rx NIFEdipine [Procardia XL] 60 mg PO HS #30 tab 11/17/18 03/14/19 Rx cloNIDine [Catapres] 0.1 mg PO BID 03/14/19 03/14/19 History - History PMHx: hx of ruptured brain aneurysm s/p repair, HTN PSHx: repair of brain aneurysm FHx: none Social: smoke 1 pack per day since he was 15 ~38 pack year hx, smokes marijuana , 2 beers per day - Review of Systems General: reports: fatigue. denies: fever/chills, weight/appetite/sleep changes Eyes: denies: eye pain, vision changes ENT: denies: nasal congestion, rhinorrhea Respiratory: denies: congestion, shortness of breath Cardiovascular: denies: chest pain, palpitation, edema Gastrointestinal: denies: nausea, vomiting Genitourinary: denies: dysuria, polyuria Skin: denies: rashes, lesions Musculoskeletal: denies: pain, tenderness Neurological: denies: numbness, syncope Psychological: denies: anxiety, depression - Vital signs BP: [203/126] HR: [72] RR: [18] Tmax: [98.1] Pox: [97]% on [RA] Wt: [115 KG] - Physical Exam Constitutional: NAD, awake, alert and oriented HEENT: PERRLA, EOMI, grossly normal vision, grossly normal hearing Neck: supple, trachea midline Chest: no-tender to palpation Heart: RRR, normal S1/S2 Lungs: CTAB, no respiratory distress Abdomen: soft, non-tender Musculoskeletal: normal structure, normal tone Neurological: no focal deficit, normal sensation Skin: no rash/lesions, good turgor Heme/Lymphatic: no unusual bruising or bleeding, no purpura Psychiatric: normal mood and affect, good judgment and insight FMR H&P: Results - Labs Lab results: CK-MB (CK-2) 3.9 ng/mL (0-6.6) 03/14/19 02:58 FMR H&P: A/P - Problem List (1) Hypertensive emergency Current Visit: Yes Status: Acute Code(s): I16.1 - HYPERTENSIVE EMERGENCY - Plan Hypertensive emergency A- pt did not respond to Labetalol, is now on cardene drip P- admit to CCU -continue cardene drip -plan to switch to PO meds as BP improves Hx of brain anuerysm A- pt is no longer sympomtatic and CT brain was normal, cannot get CTA for 24hrs 2/2 WOOD P- plan for CTA head once 24hrs has passed HFrEF A- had echo done in 10/2018 with EF 50-55%, was sent home on ARB and BB but pt non compliant, not in acute exacerbation P- plan to restart previous discharge meds as bp normalizes WOOD A- likely 2/2 HTN P- controll htn DISPO: FULL FMR H&P: Upper Level - Pertinent history 53 yr old male with PMH of ruptured brain aneurysm presents to outside ER for bloody nose. This was of concern to him bc it is apparently how his last brain aneurysm presented. He is a rather poor historian, is unable to recall his PCP' s name. He notes having surgery for his aneurysm in [place] several years ago. He reports use of clonidine for BP - Pertinent findings Gen: No acute distress, alert and oriented, overall poor historian Heart: RRR, no M/R/G Lungs: CTAB, no Wheezes, rhales, rhonchi Abd: protuberant, soft, nontender Ext: No edema in BLE Neuro: no focal neurologic deficits Brain CT: deep white matter ischemic changes, vertebrobasilar dilichoectasia - Plan Date/Time: 03/14/19 0427 I, [Khushbu Bowles], have evaluated this patient and agree with findings/plan as outlined by advertising intern resident. Pertinent changes/additions are listed here. 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 In which case treatment with spironolactone would be helpful. At that time he did also present hypokalemic. He has normal potassium today. WOOD on CKD -IV fluids and recheck BMP in AM -baseline CK appears to be around 1.2-1.4 medication noncompliance -does not seem to be taking any of the medications prescribed less than 6 months ago during hsopitalization for similar problems. marijuana use
[2019-03-14] MEDS ORDERED: Ondansetron PF 4 MG/2 ML Vial IVP PRN (04:33)
[2019-03-14] MEDS ORDERED: Acetaminophen 325 MG TAB PO PRN (04:33)
[2019-03-14] MEDS ORDERED: Ondansetron ODT 4 MG TAB SL PRN (04:33)
[2019-03-14] MEDS ORDERED: Lactated Ringer's 1,000 ML IV SCH (04:45)
[2019-03-14] MEDS ORDERED: Calcium Carbonate 500 MG ChewTAB PO PRN (05:30)
[2019-03-14 05:46] VITALS: BMI 34.5
--- NOTE | 2019-03-14 07:03 | PDOC.EVN ---
Event Note - Event Note Event Note: Date/Time: 03/14/19 1927 I personally evaluated the patient and discussed the management with Dr. 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 States that these were similar symptoms to when he had his aneurysm in 2011. Has not been compliant with his antihypertensive medications and has not followed up with PCP since his discharge from the hospital in October for hypertensive urgency. Currently CRUZ has resolved and no further nosebleed. Denies any vision changes, N/V. PMH/PSH/Meds/SH reviewed and agree with resident's documentation. T98.4 P74 BP153/103 RR22 Exam repeated by me and agree with resident's findings. Labs: WBC=8.2, H/H=14.3/47.8, Hff=244, Ao=843, K=4.1, Cl-106, CO2=24, BUN/Cr=23/1.74, Sptx=747, trop I=0.023 -> 0.038, PT/INR= 13.9/1.1, UDS- (+) MJ. CT brain with/ without contrast - no evidence of hemorrhage A/P: 1) Hypertensive emergency- Admit to ICU; BP improved with cardene drip. Will plan to restart orals. 2) H/o ICH- no evidence of hemorrhage currently.
[2019-03-14 07:04] LABS: Troponin I 0.029 ng/mL (< 0.028)
[2019-03-14] MEDS: Hydrochlorothiazide 25 MG TAB PO SCH ×2 (08:14→20:33)
[2019-03-14] MEDS: Losartan 25 MG TAB PO SCH (08:14)
[2019-03-14] MEDS: Metoprolol Tartrate 50 MG TAB PO SCH ×2 (08:14→20:33)
[2019-03-14] MEDS: niCARdipine HCl 25 MG in Sodium Chloride 0.9% 250 ML 240 ML IVPB SCH ×3 (09:35→21:45)
[2019-03-14 10:04] LABS: Troponin I 0.024 ng/mL (< 0.028)
--- NOTE | 2019-03-14 11:20 | PDOC.EVN ---
Addendum - Attending - Attending Attestation Date/Time: 03/14/19 1118 I personally evaluated the patient and discussed the management with Dr. Amos I agree with the History, Examination, Assessment and Plan documented in Resident note. 53 yo HTN AAM with poor medical compliance s/p surgery in [facility] [address] Diaz(sp) for ligation of right sided cerebral aneursym. Patient presented with headache and elevated BP patient placed on cardene drip will obtain CTA s/p recovery from previous contrast. Patient alert denies CRUZ non focal exam no nuchal rigidity. Restart po rx taper off drip as possible. Note that previous lab suggest hyperaldosteronism will rec further w/u and consider addition of aldactone. Stressed compliance with patient this am attempting to understand his barriers to self care.
--- NOTE | 2019-03-14 11:44 | PDOC.PULCC ---
CCU Progress Note: Subj/Obj - Subjective Date: 03/14/19 Time: 11:30 Subjective: Mr. Zaria Adan is a 53 year old male with a past medical history of ruptured zimmer aneurysm, CKD and hypertension that was admitted to the ICU for hypertensive emergency. Patient presented to outside ED with a chief complaint of headache and a nosebleed on 03/13/19, similar symptoms to when he had the aneurysm. A CT with contrast showed deep white matter ischemic changes and vertebrobasilar dolichoectasia, but no acute bleeding events. He was transferred to [facility] and admitted to the ICU. He was placed on a Cardene drip with a goal blood pressure of <160/110. He was previously admitted in 10/2018 for similar symptoms. At this time a stress test and echocardiogram were both negative. He was discharged with a diagnosis of hypertension at this time with prescriptions for Losartan, Metoprolol, nifedipine, and HCTZ. The patient states that he took these medications up until 1 month ago when he ran out of medications and was unable to refill them. During this same admission, labs were ordered to find secondary causes of his hypertension. Results showed a renin to aldosterone ratio and aldosterone levels that were consistent with primary hyperaldosteronism. The patient denies any fever, chills, nightsweats, chest pain, shortness of breath, nausea, vomiting, orthopnea, PND, muscle weakness, numbness, tingling, balance problems, dizziness, presyncope, or vision changes. Past Medical History: 1. Hx of ruptured intracranial aneurysm s/p repair 2. Hypertension Past Surgical History: 1. Repair of intracranial aneurysm Family History: 1. Brother suddenly at age 45, cause unknown Social History: Patient states that he has smoked since age 15, with a 38 pack year history. He also tested positive for marijuana on UDS. Review of Systems General: denies fevers, chills, nightsweats, changes in weight or appetite HEENT: denies eye pain, vision changes, nasal congestion, or rhinorrhea Respiratory: denies SOB, cough, sputum production Cardiovascular: denies chest pain, orthopnea, PND, edema Gastrointestinal: denies nause, vomiting, abdominal pain Genitourinary: denies dysuria, hematuria, polyuria Skin: denies rashes or lesions Musculoskeletal: denies pain, tenderness Neurological: denies weakness, numbness, tingling, dizziness, balance problems, presyncope Pysch: denies anxiety, depression or mood changes - Objective Allergies/Adverse Reactions: Allergies Allergy/AdvReac Type Severity Reaction Status Date / Time Penicillins Allergy Verified 03/14/19 09:50 Medications: Current Medications Acetaminophen (Tylenol) 650 mg PO Q4H PRN PRN Reason: Headache/Fever or Pain Stop: 03/14/19 15:00 Atorvastatin Calcium (Lipitor) 40 mg PO [facility] Calcium Carbonate (Tums) 1,000 mg PO Q4H PRN PRN Reason: Heartburn or Indigestion Hydrochlorothiazide (Hydrochlorothiazide) 12.5 mg PO BID [facility] Last Admin: 03/14/19 08:14 Dose: 12.5 mg Nicardipine HCl 25 mg/ Sodium (Chloride) 250 mls @ 0 mls/hr IVPB INF [facility]; Protocol Last Admin: 03/14/19 09:35 Dose: 250 mls Losartan Potassium (Cozaar) 100 mg PO DAILY [facility] Last Admin: 03/14/19 08:14 Dose: 100 mg Metoprolol Tartrate (Lopressor) 50 mg PO BID [facility] Last Admin: 03/14/19 08:14 Dose: 50 mg Ondansetron HCl (Zofran Odt) 4 mg SL Q6H PRN PRN Reason: Nausea/Vomiting Stop: 03/14/19 15:00 Sodium Chloride (Flush - Normal Saline) 10 ml IVF PRN PRN PRN Reason: Saline Flush Stop: 03/14/19 15:00 Spironolactone (Aldactone) 25 mg PO BID-[facility] Vital Signs and I&O: Vital Signs Temp 98.5 F 03/14/19 08:00 Pulse 75 03/14/19 04:45 Resp 20 03/14/19 04:45 BP 175/105 H 03/14/19 04:45 Pulse Ox 95 03/14/19 08:00 Intake & Output 03/13/19 03/14/19 03/14/19 18:59 06:59 18:59 Intake Total 350 Output Total 1000 1550 Balance -1000 -1200 Weight 254 lb 10.142 oz Intake: Oral 350 Output: Urine 1000 1550 Other: Voiding Method Urinal CCU Progress Note: Exam - Physical Exam HEENT: PERRLA, moist MMs, sclera anicteric Neck: no JVD Cardiovascular: RRR, no significant murmur Respiratory: clear to auscultation bilaterally Gastrointestinal: soft, non-tender, no distention, positive bowel sounds Musculoskeletal: no edema, pulses present Neurological: non-focal, normal sensation, moves all 4 limbs Psychiatric: normal affect, A&O x 3 Skin: no rash, normal turgor, cap refill <2 seconds CCU Progress Note: Data - Labs Result Diagrams: 03/16/19 04:29 Lab results: Laboratory Results 03/14/19 03/14/19 03/14/19 02:37 02:58 02:58 CK-MB (CK-2) 3.9 Troponin I 0.038 H Urine Opiates Screen Not Detected Ur Oxycodone Screen Not Detected Urine Methadone Screen Not Detected Ur Propoxyphene Screen Not Detected Ur Barbiturates Screen Not Detected Ur Tricyclics Screen Not Detected Ur Phencyclidine Scrn Not Detected Ur Amphetamines Screen Not Detected U Methamphetamines Scrn Not Detected U Benzodiazepines Scrn Not Detected U Cocaine Metab Screen Not Detected U Cannabinoids Screen Detected H Drug Screen Comment Plasma Alcohol Less than 10 03/14/19 03/14/19 06:18 09:24 CK-MB (CK-2) Troponin I 0.029 H 0.024 Urine Opiates Screen Ur Oxycodone Screen Urine Methadone Screen Ur Propoxyphene Screen Ur Barbiturates Screen Ur Tricyclics Screen Ur Phencyclidine Scrn Ur Amphetamines Screen U Methamphetamines Scrn U Benzodiazepines Scrn U Cocaine Metab Screen U Cannabinoids Screen Drug Screen Comment Plasma Alcohol - Radiology Interpretation CT scan - head Status: report reviewed by me Additional comments: CT-head with and without contrast was conducted at outside ED, which showed no acute bleeds, but did show deep white matter ischemic changes and dolichoectasia of the vertebrobasilar artery. CTA head was conducted and showed no discrete intracranial aneurysms, stenosis or obstructions. CCU Progress Note: A/P - Problems (1) Hypertensive emergency Status: Resolved Code(s): I16.1 - HYPERTENSIVE EMERGENCY Assessment and Plan: 1. CT head showed no acute bleeds 2. Patient currently on 2.5 mg/hr of Cardene drip 3. Patient received home blood pressure medications, except for nifedipine 4. Spironolactone 25 mg PO B.I.D will be added. 5. Monitor BP. Goal is to keep BP less than 180 systolic, as we do not want a change greater than 25% in MAP from admission BP. (2) Primary hyperaldosteronism Status: Suspected Assessment and Plan: 1. Lab work from prior admission showed an elevated aldosterone and an abnormal renin to aldosterone ration, which is consistent with a diagnosis of primary hyperaldosteronism. 2. Patient will be started on Spironolactone 25 mg PO BID 3. CT with contrast of the abdomen will need to be done to evaluate for adrenal nodule, but due to patient's CKD and recent contrast load, will need to be done at later time to limit contrast exposure and further kidney injury. (3) WOOD (acute kidney injury) Status: Resolved Code(s): N17.9 - ACUTE KIDNEY FAILURE, UNSPECIFIED Assessment and Plan: 1. Patient has WOOD on his CKD. Baseline Cr is 1.2-1.4. 2. Cr on initial labs was 1.74 3. Continue to monitor kidney function on daily BMP - Plan Plan: 1. Patient will remain in the ICU while on the Cardene drip. When the drip is removed, anticipate move to the medical floor. 2. Add Spironolactone to home BP meds, and give 25 mg PO BID starting now. 3. Continue to monitor BP, initial goal of <180 systolic BP for today. 70 minutes have been devoted to this patient in various activities. I personally reviewed all imaging studies and laboratory data noted within this document. For fifty percent of this time, I was interacting with the patient at the bedside or coordinating care with the care team. For the remainder of the time I was immediately available to the patient in the hospital unit.
--- NOTE | 2019-03-14 11:59 | CT ---
CTA of the head with and without IV contrast and 3-D reformatted imaging. CT head noncontrast 3 D Volume Rendering: DATE: 03/14/2019 11:00 PM HISTORY: Headache. Clinical evaluation for aneurysm COMPARISON: Head CT previous day's reference FINDINGS: CT Head: Microvascular ischemic disease of the cerebral white matter is present, moderate in degree. No intracranial hemorrhage, mass effect or midline shift. There is mild prominence of the ventricular system, likely on the basis of slight degree of ex vacuo dilatation from the degree of pe riventricular leukomalacia. Small hypodensities of each thalamus indicate lacunar infarctions, which is stable on the right. Left thalamic lacunar infarction is age indeterminate. Right: ICA:Atherosclerosis without high-grade stenosis MCA:Mild atherosclerotic irregularity SHAKILA:No significant stenosis. FIELD SERVICE REPRESENTATIVE:No significant stenosis. LEFT: ICA:Atherosclerosis without high-grade stenosis MCA:Tortuous with atherosclerotic disease although no high-grade stenosis SHAKILA:No significant stenosis. FIELD SERVICE REPRESENTATIVE:No significant stenosis. Vertebrobasilar System: Left Vertebral:No significant stenosis. Right Vertebral:Markedly tortuous Basilar:Scattered mild atherosclerosis No discrete intracranial aneurysm evident. IMPRESSION: No hemodynamically significant stenosis, occlusion or aneurysmal dilation. Microvascular ischemic findings and lacunar infarctions, demonstrated on noncontrast head CT, as abov e. As necessary, follow-up with brain MRI may be obtained.
[2019-03-14] MEDS: Spironolactone 25 MG TAB PO SCH (16:58)
[2019-03-14] MEDS: Atorvastatin Calcium 40 MG TAB PO SCH (20:33)
--- NOTE | 2019-03-15 07:12 | PDOC.FM ---
- Subjective Subjective: Seen at bedside this morning resting comfortably. Over night he was titrated off of cardene. No acute events over night. No new complaints. Denies headache, changes in vision, and all neuro symptoms - Objective MAR Reviewed: Yes Vital Signs & Weight: Vital Signs (12 hours) Temp Pulse Ox 03/15/19 06:13 94 L 03/15/19 04:00 98.6 F 03/15/19 00:00 98.5 F 96 03/14/19 20:00 98.0 F 03/14/19 19:45 94 L Weight Weight 115.5 kg Most Recent Monitor Data Heart Rate from ECG 63 NIBP 178/104 NIBP BP-Mean 128 Respiration from ECG 19 SpO2 100 I&O: 03/14/19 03/15/19 03/16/19 06:59 06:59 06:59 Intake Total 1670 Output Total 1000 4925 Balance -1000 -4925 Result Diagrams: 03/15/19 07:57 Phys Exam - Physical Examination Constitutional: NAD HEENT: moist MMs, sclera anicteric Neck: no nodes Respiratory: clear to auscultation bilateral Cardiovascular: RRR, no significant murmur Gastrointestinal: soft, non-tender, no distention Musculoskeletal: no edema Neurological: non-focal, moves all 4 limbs Psychiatric: normal affect, A&O x 3 Skin: no rash Dx/Plan (1) Hypertensive emergency Code(s): I16.1 - HYPERTENSIVE EMERGENCY Status: Acute (2) WOOD (acute kidney injury) Code(s): N17.9 - ACUTE KIDNEY FAILURE, UNSPECIFIED Status: Acute (3) Primary hyperaldosteronism Status: Suspected (4) Elevated troponin I level Code(s): R74.8 - ABNORMAL LEVELS OF OTHER SERUM ENZYMES Status: Resolved (5) Hypokalemia Code(s): E87.6 - HYPOKALEMIA Status: Acute - Plan Plan: 1. Hypertensive emergency - Off of drip now. Started on spironolactone yesterday. BP has been trending upward since coming off of cardene, will continue to monitor on ICU and restart drip if needed. If BP remains below 180/100 will transfer to medical later this afternoon. - This is likely related to primary hyperaldosteronism given previous labs in October. He will need a CT abdomen to evaluate for adrenal pathology. 2. WOOD, resolved 3. Elevated troponin - resolved, likely related to demand from hypertension 4. Hyperaldosteronism, suspected - as above. Continue spironolactone 5. Hypokalemia - replace today, recheck in am Dispo: stable and improving. Likely length of stay 24-48 hours. Addendum - Attending - Attending Attestation Date/Time: 03/15/19 [id number] I personally evaluated the patient and discussed the management with Dr. Amos I agree with the History, Examination, Assessment and Plan documented above with any addition or exceptions noted below. Blood pressure elevated this AM recommend restart po CCB note CTA negative for cerebral aneurysm Continue w/u hyperaldosteronism work up
[2019-03-15] MEDS: Losartan 25 MG TAB PO SCH (07:18)
[2019-03-15] MEDS: Metoprolol Tartrate 50 MG TAB PO SCH ×2 (07:19→20:12)
[2019-03-15] MEDS: Hydrochlorothiazide 25 MG TAB PO SCH ×2 (07:19→20:13)
[2019-03-15] MEDS: Spironolactone 25 MG TAB PO SCH ×2 (07:20→16:08)
[2019-03-15] MEDS ORDERED: Losartan 25 MG TAB PO SCH (08:30)
[2019-03-15 08:40] LABS: Anion Gap 12 mmol/L (10-20); BUN (Urea Nitrogen) 15 mg/dL (8.4-25.7); Calc. Creatinine Clearance 108 mL/min (70-130); Calcium 9.8 mg/dL (7.8-10.44); Carbon Dioxide 26 mmol/L (22-29); Chloride 100 mmol/L (98-107); Estimated GFR-MDRD 69; Glucose 122 mg/dL (70-105); Potassium 3.2 mmol/L (3.5-5.1); Sodium 135 mmol/L (136-145)
[2019-03-15] MEDS ORDERED: Potassium Chloride 20 MEQ TAB PO SCH (09:15)
[2019-03-15] MEDS ORDERED: Ibuprofen 800 MG TAB PO PRN (09:52)
[2019-03-15] MEDS ORDERED: hydrALAZINE 20 MG/ML VIAL SLOW IVP PRN ×2 (09:53→10:13)
[2019-03-15] MEDS ORDERED: Labetalol HCl 100 MG/20 ML VIAL SLOW IVP PRN (09:53)
[2019-03-15] MEDS: hydrALAZINE 20 MG/ML VIAL SLOW IVP PRN ×2 (10:30→12:37)
--- NOTE | 2019-03-15 16:24 | PRG ---
DATE OF SERVICE: 03/15/2019 SERVICE: Pulmonary Medicine. INTERVAL HISTORY: The patient is doing okay from respiratory standpoint. Breathing comfortably. No complaints of headache, fevers, chills, cough, nausea, vomiting , or shortness of breath. His blood pressure is under much better control. He has been off the nicardipine drip for a while now. His blood pressures were creeping up , but his a.m. blood pressure medicines were given early, and he is on his way back down at this point. PHYSICAL EXAMINATION: VITAL SIGNS: Afebrile, pulse 71, blood pressure 163/102, respirations 21, saturation 100% on room air. GENERAL: The patient is awake and alert, in no apparent distress. LUNGS: Excellent air entry without any prolonged expiratory phase or wheezing present. HEART: Normal rate and regular. ABDOMEN: Soft, nontender, and nondistended. Bowel sounds are positive. MUSCULOSKELETAL: No cyanosis or clubbing. No pitting in the bilateral lower extremities. NEUROLOGIC: Grossly nonfocal. LABORATORY DATA: Creatinine 1.32 and beautifully downtrending, potassium 3.2, sodium 135. Urine drug screen is positive for cannabinoids. ASSESSMENT: 1. Hypertensive emergency, resolved. 2. Primary hyperaldosteronism. 3. Acute kidney injury, resolving. DISCUSSION AND PLAN: The patient is stable for transition out of the ICU to the medical unit. Potassium will be replaced. We will convert him on a p.r.n. hydralazine if needed for any systolics greater than 180. At this point, he has no further requirements per inpatient Pulmonary critical Care opinion, so when he leaves the ICU, I will sign off. Job ID: [id number] [facility]
[2019-03-15] MEDS ORDERED: Docusate 100 MG CAP PO PRN (18:14)
[2019-03-15] MEDS: Atorvastatin Calcium 40 MG TAB PO SCH (20:12)
[2019-03-15 20:13] VITALS: BP 177/105
[2019-03-15] MEDS ORDERED: NIFEdipine XL 60 MG TAB PO SCH (21:00)
[2019-03-16 05:06] LABS: Anion Gap 12 mmol/L (10-20); BUN (Urea Nitrogen) 17 mg/dL (8.4-25.7); Calc. Creatinine Clearance 106 mL/min (70-130); Carbon Dioxide 25 mmol/L (22-29); Chloride 104 mmol/L (98-107); Estimated GFR-MDRD 68; Glucose 98 mg/dL (70-105); Magnesium 2.1 mg/dL (1.6-2.6); Sodium 137 mmol/L (136-145)
--- NOTE | 2019-03-16 06:51 | PDOC.FM ---
- Subjective Subjective: Seen at bedside this morning resting comfortably. No new complaints. No acute events over night. - Objective MAR Reviewed: Yes Vital Signs & Weight: Vital Signs (12 hours) Temp Pulse BP Pulse Ox 03/16/19 04:00 98.4 F 92 L 03/16/19 00:00 98.5 F 03/15/19 20:12 73 177/105 H 03/15/19 19:35 98 03/15/19 19:00 98.8 F Weight Weight 115.5 kg Most Recent Monitor Data Heart Rate from ECG 78 NIBP 162/124 NIBP BP-Mean 136 Respiration from ECG 20 SpO2 94 I&O: 03/14/19 03/15/19 03/16/19 06:59 06:59 06:59 Intake Total 1670 880 Output Total 7011 4831 1440 Balance -1000 -3255 -696 Result Diagrams: 03/16/19 04:29 Phys Exam - Physical Examination Constitutional: NAD HEENT: moist MMs, sclera anicteric Respiratory: clear to auscultation bilateral Cardiovascular: RRR, no significant murmur Gastrointestinal: soft, non-tender, no distention Musculoskeletal: no edema Neurological: moves all 4 limbs Psychiatric: normal affect, A&O x 3 Skin: no rash Dx/Plan (1) Primary hyperaldosteronism Status: Suspected (2) Hypertensive emergency Code(s): I16.1 - HYPERTENSIVE EMERGENCY Status: Resolved (3) WOOD (acute kidney injury) Code(s): N17.9 - ACUTE KIDNEY FAILURE, UNSPECIFIED Status: Resolved (4) Elevated troponin I level Code(s): R74.8 - ABNORMAL LEVELS OF OTHER SERUM ENZYMES Status: Resolved (5) Hypokalemia Code(s): E87.6 - HYPOKALEMIA Status: Resolved - Plan Plan: 1. Hypertensive emergency - BP has been largely in the 140-160/80-100 range since yesterday. No PRN IV BP meds since yesterday at 1230. - CT abd today to evaluate for primary hyperaldosteronism. - May consider restarting home clonidine if needed. - Move to medical floor this morning while waiting for CT 2. WOOD, resolved 3. Elevated troponin - resolved, likely related to demand from hypertension 4. Hyperaldosteronism, suspected - as above. Continue spironolactone 5. Hypokalemia - replace today, recheck in am Dispo: stable and improving. Likely ready to dc today pending results of CT abdomen.Will need close outpatient follow up for BP. Addendum - Attending - Attending Attestation Date/Time: 03/16/19 [id number] I personally evaluated the patient and discussed the management with Dr. Amos I agree with the History, Examination, Assessment and Plan documented above with any addition or exceptions noted below. Patient BP fairly well controlled back on oral RX note CT with adrenal mass will complete w/u as outpt with General Surgery consultation. Outpatient f/u with [place] PCP Dr Jeffries.
[2019-03-16] MEDS ORDERED: Sodium Chloride 0.65% Nasal 44 ML BOT EA NARE PRN (07:11)
[2019-03-16 08:27] VITALS: TEMP 98.6
[2019-03-16] MEDS: Losartan 25 MG TAB PO SCH (09:51)
[2019-03-16] MEDS: Spironolactone 25 MG TAB PO SCH (09:52)
[2019-03-16] MEDS: Metoprolol Tartrate 50 MG TAB PO SCH (09:52)
[2019-03-16] MEDS: Hydrochlorothiazide 25 MG TAB PO SCH (09:52)
--- NOTE | 2019-03-16 09:59 | CT ---
CT ABDOMEN AND PELVIS WITH IV CONTRAST 03/16/2019 CLINICAL INFORMATION: Primary hyperaldosteronism COMPARISON: Noncontrast CT abdomen and pelvis on 08/10/2012. Technique: Multiple contiguous axial CT images are obtained through the abdomen and pelvis with IV contrast. Cor onal reformatted images are provided. FINDINGS: Lower Chest: within normal limits. Vessels: Vascular calcifications are seen in the abdominal aorta involving the iliac arteries as well as origins of the renal arteries. Abdomen: Portal vein:Patent Gallbladder: No calcified gallstones. Normal caliber wall. Liver: within normal limits. Pancreas: within normal limits. Spleen: within normal limits. Adrenals: A 1.3 cm low-density lesion is seen in the right adrenal gland. This is stable in size comp ared to study in 2012, and on that study, attenuation coefficient was most suggestive of an adrenal adenoma. The left adrenal gland demonstrates a normal CT appearance. Kidneys: within normal limits. Peritoneum: No ascites or free air; no fluid collection. Bowel: There is evidence of colonic diverticulosis. The opacified small bowel is normal in caliber an d demonstrates a normal CT appearance. A small amount of retained fecal material is seen throughout the colon. Appendix: The appendix is visualized and normal in caliber. Mesentery and Retroperitoneum: No enlarged mesenteric or retroperitoneal lymph nodes. Abdominal Wall: There is a small fat-containing umbilical hernia stable compared to study in 2012. Pelvis: Reproductive Organs: No pelvic masses. Pelvis within normal limits. Bladder: Incompletely distended but grossly normal in appearance. Bones: Degenerative changes are seen in the spine. No lytic or sclerotic osseous lesions are apprecia madai. IMPRESSION: 1. No acute findings are seen in the abdomen or pelvis. 2. Stable right adrenal nodule demonstrating characteristics of an adrenal adenoma on prior study in 2011. 3. Colonic diverticulosis.
[2019-03-16] MEDS ORDERED: ISOVUE-370 76%-LOCM 1 ML ONE (10:58)
--- NOTE | 2019-03-16 11:59 | PRG ---
DATE OF SERVICE: 03/16/2019 SERVICE: Pulmonary Medicine. INTERVAL HISTORY: The patient is outstanding from respiratory standpoint. He has no complaints of chest pain, fevers, or chills. He is breathing comfortably. Otherwise, there has been no interval change to his condition. PHYSICAL EXAMINATION: VITAL SIGNS: Afebrile, pulse 82, blood pressure 189/118, respirations 25, saturation 100% on room air. GENERAL: The patient is awake and alert, in no apparent distress. LUNGS: Excellent air entry. There is no prolonged expiratory phase, wheezing, crackles, or rhonchi. HEART: Normal rate and regular. ABDOMEN: Soft, nontender, nondistended. Bowel sounds are positive. MUSCULOSKELETAL: No cyanosis or clubbing. No pitting in the bilateral lower extremities. NEUROLOGIC: Grossly nonfocal. IMAGING STUDIES: CT of the abdomen and pelvis demonstrates no findings. There is a stable right adrenal nodule consistent with an adrenal adenoma, which was previously demonstrated in 2012. This measures 1.3 cm. ASSESSMENT: 1. Hypertensive emergency, resolved. 2. Primary hyperaldosteronism. 3. Acute kidney injury. 4. Adrenal nodule. DISCUSSION AND PLAN: The patient is stable for transition out of the ICU to the medical unit. Ultimately, he will need to see urology to do a secondary workup and decide whether or not this nodule needs to be excised. When he leaves the ICU, he will have no further requirements for inpatient Pulmonary or Critical Care opinion, and I will sign off. Please call with additional questions or concerns through time. Job ID: [id number] [facility]
--- NOTE | 2019-03-17 13:42 | DIS ---
DATE OF ADMISSION: 03/14/2019 DATE OF DISCHARGE: 03/16/2019 CONSULTS: Juarez Garcia MD, Pulmonary Critical Care. PROCEDURES: CT teller of Rosa angio with contrast on 03/14. Findings; no hemodynamically significant stenosis, occlusion, or aneurysmal dilation. Microvascular ischemic changes and lacunar infarcts demonstrated on noncontrast head CT. CT abdomen and pelvis with IV and oral contrast on 03/16. Findings; a 1.3 cm low-density lesion on the right adrenal, stable compared to a study in 2011 suggestive of an adrenal adenoma. ADMITTING DIAGNOSES: 1. Hypertensive emergency. 2. Acute kidney injury on chronic kidney disease. 3. Primary hyperaldosteronism, suspected SECONDARY DIAGNOSES: 1. Hypertension. 2. Tobacco abuse. 3. Marijuana abuse. 4. Chronic kidney disease 2. 5. History of brain aneurysm. DISCHARGE MEDICATIONS: 1. Lipitor 40 mg p.o. at bedtime. 2. Motrin 800 mg p.o. q.6 p.r.n. pain. 3. Losartan 100 mg p.o. daily. 4. Metoprolol tartrate 50 mg p.o. b.i.d. 5. Procardia XL 60 mg p.o. at bedtime. 6. Hydrochlorothiazide 12.5 mg p.o. b.i.d. 7. Spironolactone 25 mg p.o. b.i.d. DISCONTINUED MEDICATIONS: 1. Potassium chloride 20 mEq p.o. daily. 2. Clonidine 0.1 mg p.o. b.i.d. HOSPITAL COURSE: This is a 53-year-old male with a history of cerebral artery aneurysm, presented to the emergency room with complaint of bloody nose and was diagnosed with hypertensive emergency due to blood pressures over 200 systolic and WOOD and elevated troponins to 0.028. The patient was started on Cardene drip and blood pressures were quickly controlled. The patient required Cardene for approximately 48 hours and was transitioned over to oral medications. At that time, it was noted that a previous workup for hypertensive urgency was consistent with primary hyperaldosteronism on 11/17/2018. Aldosterone was 19.6 and renin activity was 0.303. The patient was started on spironolactone as well. His blood pressures throughout the hospitalization varied between 120s over 80s up to 170s over 100s. He did require PRN IV antihypertensives for blood pressure control. CT abdomen for evaluation of adrenals was performed on the day of discharge with finding of a right adrenal mass of less than 2 cm that is consistent with previous CT. This is suspected to be a functional adenoma resulting in a primary hyperaldosteronism. Case was discussed with [facility]ilogy, who will see the patient in the outpatient setting for further work up and definitive treatment. At the time of discharge, discussion was had with the patient that he had an adrenal mass which was likely causing his hypertension. It was made very clear that the patient that he must keep his blood pressure on time every day and must follow up with his primary care provider and urology for definitive diagnosis and treatment. The patient understood and stated that he would comply. DISCHARGE INSTRUCTIONS: LOCATION: Home. DIET: Heart healthy. FOLLOWUP: With Dr. Jeffries, PCP in [address] Werner in 1 week. Job ID: [id number] [facility]
--- NOTE | 2019-03-18 09:56 | DIS ---
DATE OF ADMISSION: 03/14/2019 DATE OF DISCHARGE: 03/16/2019 ADMITTING ATTENDING: Beverly Schwartz MD DISCHARGE ATTENDING: Elieser Palencia MD RESIDENT: Josue Amos DO CONSULTS: Juarez Garcia MD, Critical Care. PROCEDURES: CT [place] [facility] [place] [facility] with contrast on 03/14, finding of no hemodynamically significant stenosis, occlusion, or aneurysmal dilation. Microvascular ischemic findings and lacunar infarcts. CT abdomen and pelvis on 03/16, no acute findings. There was a stable right adrenal nodule demonstrating characteristics of an adrenal adenoma measuring 1.3 cm and colonic diverticulosis. ADMITTING DIAGNOSES: 1. Hypertensive emergency. 2. Primary hyperaldosteronism, suspected. 3. Acute kidney injury. SECONDARY DIAGNOSES: 1. Elevated troponin. 2. Hypokalemia. DISCHARGE MEDICATIONS: 1. Lipitor 40 mg p.o. at bedtime. 2. Motrin 800 mg p.o. q.6 p.r.n. 3. Losartan 100 mg p.o. daily. 4. Metoprolol tartrate 50 mg p.o. b.i.d. 5. Procardia XL 60 mg p.o. at bedtime. 6. Hydrochlorothiazide 12.5 mg p.o. b.i.d. 7. Spironolactone 25 mg p.o. b.i.d. DISCONTINUED MEDICATIONS: 1. Catapres 0.1 mg p.o. b.i.d. 2. Potassium chloride 20 mEq p.o. daily. HOSPITAL COURSE: This is a 53-year-old male, who was admitted to this facility for hypertensive emergency. At the time of presentation, the patient had systolic blood pressures greater than 200 with a demonstrated WOOD and elevated troponins. Both WOOD and elevated troponins were determined to be secondary to the blood pressure. The patient was admitted to the ICU and started on a Cardene drip. Blood pressure was quickly controlled with Cardene, and the patient was restarted on home medications. Upon chart review, it was noted that the patient in 10/2018, had labs consistent with primary hyperaldosteronism with a renin activity level of 0.3 and an aldosterone level of 19.6. A CT abdomen was performed that found a stable 1.3 cm nodule on the right adrenal consistent with an adenoma. 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 The patient was taken off Cardene drip by second day of admission and controlled with p.o. medications and infrequent p.r.n. IV medications. Diagnosis was discussed with the patient, and he was advised to make sure that he is taking all of his medications every day. It was also discussed that he needs to follow up with his primary care provider, Dr. Jeffries in [place], so that she can facilitate further workup and definitive treatment for his hyperaldosteronism. The patient understood the importance of his medication and the importance of followup prior to discharge. Case was discussed with Dr. Werner, who has agreed to see the patient in the outpatient setting for definitive diagnosis and management. DISCHARGE INSTRUCTIONS: LOCATION: Home. FOLLOWUP: With PCP, Dr. Dora Jeffries within two days. Follow up with Urology, Dr. Werner in one week. DIET: Heart healthy. ACTIVITY: Ad ana. Job ID: [id number]
== END 2019-03-16 12:00 | disposition home or self-care (01) | DRG 305 ==
LOC: ERS 02:06 → CCU 04:38
PROVIDERS: ADMIT Family Medicine; ATTEND Family Medicine
DX: I16.1 Hypertensive emergency (principal); N17.9 Acute kidney failure, unspecified; I50.20 Unspecified systolic (congestive) heart failure; I13.0 Hypertensive heart and chronic kidney disease with heart failure and stage 1 through stage 4 chronic kidney disease, or unspecified chronic kidney disease; N18.9 Chronic kidney disease, unspecified; E26.09 Other primary hyperaldosteronism; R74.8 Abnormal levels of other serum enzymes; E87.6 Hypokalemia; E27.8 Other specified disorders of adrenal gland; Z98.890 Other specified postprocedural states; Z86.79 Personal history of other diseases of the circulatory system; Z91.14 Patient's other noncompliance with medication regimen
CPT/HCPCS: 36415; 70496; 74177; 80048; 80306; 80307; 82553; 83735; 84484; 93005; 96361; 96374; 96375; J0360; J7050

== ENCOUNTER 2019-03-16 23:29 | Emergency (ER) | payer MEDICARE, MEDICAID ==
[2019-03-17] MEDS ORDERED: Metoprolol Tartrate 50 MG TAB ONE (00:50)
[2019-03-17] MEDS ORDERED: Ondansetron PF 4 MG/2 ML Vial ONE (00:50)
[2019-03-17] MEDS ORDERED: Morphine 4 MG/ML VIAL ONE (00:50)
[2019-03-17 01:05] LABS: Troponin I 0.037 ng/mL (< 0.028)
[2019-03-17] MEDS ORDERED: NIFEdipine XL 60 MG TAB PO SCH (01:15)
[2019-03-17] MEDS ORDERED: NIFEdipine XL 30 MG TAB PO SCH (01:15)
[2019-03-17] MEDS ORDERED: Losartan 25 MG TAB PO SCH (01:15)
[2019-03-17] MEDS ORDERED: Hydrochlorothiazide 25 MG TAB PO SCH (01:15)
[2019-03-17] MEDS ORDERED: Spironolactone 25 MG TAB PO SCH (01:15)
== END 2019-03-17 03:13 | disposition home or self-care (01) ==
LOC: ERS 23:29
DX: I10 Essential (primary) hypertension (principal); R04.0 Epistaxis; F17.210 Nicotine dependence, cigarettes, uncomplicated; Z79.899 Other long term (current) drug therapy
CPT/HCPCS: 36415; 84484; 96374; 96375; J2270; J2405